=== PATIENT | male | born 1965 | race Caucasian/White ===

== ENCOUNTER 2020-10-11 | Emergency (ER) | payer OTHER, SELFPAY ==
--- NOTE | 2020-10-11 | XR_ITS ---
EXAMINATION: CHEST 2 VIEWS CLINICAL INFORMATION: Pain. COMPARISON: None. TECHNIQUE: PA and lateral views of the chest were obtained. FINDINGS: The cardiac silhouette is not enlarged. A right-sided port is in place. The tip overlies the mid SVC. The mediastinal and hilar contours are unremarkable. There are neither pleural effusions nor pneumothoraces. Throughout both lungs, there is patchy opacification, left greater than right. There is mild superimposed interstitial prominence bilaterally. The osseous structures are unremarkable. XR/XR chest 2V IMPRESSION: Nonspecific patchy opacification, left greater than right, throughout both lungs superimposed upon mild interstitial prominence.
[2020-10-11 00:17] VITALS: BP 140/65; PULSE 78; RESP 16; TEMP 36.4; O2SAT 98; BMI 33.1
--- NOTE | 2020-10-11 02:55 | ED.ABDPAIN ---
HPI - Abdominal Pain General Chief Complaint: Abdominal Pain Stated Complaint: Flank pain Time Seen by Provider: 10/11/20 02:53 Source: patient Mode of arrival: ambulatory Limitations: no limitations History of Present Illness HPI narrative: Patient with history of colon cancer diagnosed 2017 status post partial colectomy and chemotherapy, was doing okay for last 4 days patient noticed pain in the right upper quadrant and radiating to the right flank without any urinary symptoms no nausea no vomiting no diarrhea pain get worse on taking deep breaths since yesterday patient noticed shortness of breath and dry cough occasionally fever no chills Related Data Previous Rx's Medication Instructions Recorded oxycodone 5 mg PO Q6H PRN #20 tab 10/11/20 Allergies Allergy/AdvReac Type Severity Reaction Status Date / Time No Known Allergies Allergy Unverified 07/06/20 19:47 [No Known Allergies*] Review of Systems Review of Systems Constitutional : No Weight loss, No Fever, No Chills ENT/Mouth : No sore throat, No Rhinorrhea Eyes: No Eye Pain, No Swelling Cardiovascular : No Chest Pain, no Dyspnea on Exertion, No Orthopnea, No Edema, No Palpitations, ++SOB Respiratory : Occasion Cough, No Sputum Gastrointestinal : no Nausea, No Vomiting, No Diarrhea, No Hematochezia, No Melena Genitourinary : No Dysuria, No Urinary Frequency Musculoskeletal : No joint pain, No Myalgias, No Joint Swelling Skin : No Skin Lesions, No rash Neuro : No Weakness, No Numbness, No Dizziness, No Headache Psych : No Anxiety/Panic, No Depression Heme/Lymph: No Bruising, No Lymphadenopathy Endocrine : No Polyuria, No Polydipsia All other systems reviewed and are negative Physical Exam Vital Signs: Vital Signs: Last Vital Signs Temp 97.6 F 10/11/20 00:17 Pulse 78 10/11/20 04:47 Resp 18 10/11/20 04:47 BP 120/68 10/11/20 04:47 Pulse Ox 98 10/11/20 04:47 Body Mass Index 33.1 Appearance: Alert. Oriented X3. No acute distress. Eyes: Pupils equal, round and reactive to light. ENT: Pharynx normal. Neck: Normal inspection. Neck supple. CVS: Normal heart rate and rhythm. Pulses normal. Respiratory: No respiratory distress. Breath sounds normal. Abdomen: Soft mild tenderness right upper quadrant and right flank area without rebound tenderness or guarding, Bowel sounds are present, no mass palpable, Huber sign negative Skin: Skin warm and dry. Normal skin color. Normal skin turgor. Extremities: No lower extremity edema. No calf tenderness Neuro: Oriented X 3. No motor deficit. No sensory deficit. Course Course Course Narrative: Patient with history of colon cancer came in with right upper quadrant pain workup showed metastatic disease to liver and the lungs give him some pain medication advised to follow-up with his oncologist MDM - Abdominal Pain MDM Narrative Medical decision making narrative: Patient with right upper quadrant and right back pain etiology is not clear chest x-ray showed atypical infiltrate possible COVID infection went to the CAT scan because of the history of colon cancer to rule out any nephrolithiasis or gallstones versus spread of cancer Medical Records Attestation: I reviewed the patient's medical records. Lab Data Attestation: I reviewed the patient's lab results. Result diagrams: 10/11/20 03:10 10/11/20 03:10 Labs: Lab Results 10/11/20 10/11/20 10/11/20 Range/Units 03:10 03:10 03:10 WBC 10.4 (4.8-10.8) X10*3/uL RBC 4.45 L (4.60-5.80) X10*6/uL Hgb 11.6 L (14.0-18.0) g/dl Hct 37.3 L (42-52) % MCV 83.8 (80-98) fL MCH 26.1 L (27.0-33.0) pg MCHC 31.1 (31.0-36.0) g/dl RDW 15.8 (11.0-16.0) % Plt Count 181 (160-400) X10*3/uL MPV 11.3 (9.4-12.4) fL Immature Gran % (Auto) 0.3 (0.0-0.4) % Neut % (Auto) 69.2 (45-73) % Lymph % (Auto) 17.7 L (20-40) % [place] % (Auto) 6.6 (2-11) % Eos % (Auto) 5.4 H (0-4) % Baso % (Auto) 0.8 (0-2) % Lymph # (Auto) 1.8 (1.2-4.9) X10*3/uL [place] # (Auto) 0.7 (0.1-1.2) X10*3/uL Eos # (Auto) 0.6 H (0.0-0.4) X10*3/uL Baso # (Auto) 0.1 (0.0-0.2) X10*3/uL Abs Immat Gran (auto) 0.03 (0.00-0.03) X10*3/uL Absolute Neuts (auto) 7.2 (2.0-8.3) X10*3/uL Absolute Nucleated RBC 0.000 (0.0-0.012) X10*3/uL Nucleated RBC % (auto) 0.0 (0.0-0.2) /100WBC PT 16.3 H (10.8-13.0) SEC INR 1.4 H (0.9-1.1) D-Dimer 896 NG/ML Sodium 140 (135-145) mmol/L Potassium 4.3 (3.3-5.1) mmol/l Chloride 100 (96-108) mmol/L Carbon Dioxide 31 H (22-29) mmol/L Anion Gap 13 (12-20) BUN 16 (9-16) mg/dL Creatinine 1.03 (0.5-1.4) mg/dL Estim Creat Clear Calc 79.8 Estimated GFR > 60 Random Glucose 96 (60-115) mg/dL Lactic Acid (0.5-2.0) mmol/L Calcium 9.5 (8.4-10.2) mg/dL Total Bilirubin 0.5 (0.0-1.0) mg/dL Direct Bilirubin 0.2 (0.0-0.5) mg/dL AST 40 H (5-37) U/L ALT 19 (0-40) U/L Alkaline Phosphatase 140 H (39-117) U/L Troponin I High Sens (<3.5-35.0) ng/L Total Protein 8.1 H (6.5-8.0) g/dL Albumin 4.5 (3.5-5.0) g/dL Lipase 23 (8-78) U/L Coronavirus (PCR) (Negative) Influenza Type A (PCR) (Negative) Influenza Type B (PCR) (Negative) RSV RNA Qual (PCR) (Negative) 10/11/20 10/11/20 10/11/20 Range/Units 03:10 03:10 03:10 WBC (4.8-10.8) X10*3/uL RBC (4.60-5.80) X10*6/uL Hgb (14.0-18.0) g/dl Hct (42-52) % MCV (80-98) fL MCH (27.0-33.0) pg MCHC (31.0-36.0) g/dl RDW (11.0-16.0) % Plt Count (160-400) X10*3/uL MPV (9.4-12.4) fL Immature Gran % (Auto) (0.0-0.4) % Neut % (Auto) (45-73) % Lymph % (Auto) (20-40) % [place] % (Auto) (2-11) % Eos % (Auto) (0-4) % Baso % (Auto) (0-2) % Lymph # (Auto) (1.2-4.9) X10*3/uL [place] # (Auto) (0.1-1.2) X10*3/uL Eos # (Auto) (0.0-0.4) X10*3/uL Baso # (Auto) (0.0-0.2) X10*3/uL Abs Immat Gran (auto) (0.00-0.03) X10*3/uL Absolute Neuts (auto) (2.0-8.3) X10*3/uL Absolute Nucleated RBC (0.0-0.012) X10*3/uL Nucleated RBC % (auto) (0.0-0.2) /100WBC PT (10.8-13.0) SEC INR (0.9-1.1) D-Dimer NG/ML Sodium (135-145) mmol/L Potassium (3.3-5.1) mmol/l Chloride (96-108) mmol/L Carbon Dioxide (22-29) mmol/L Anion Gap (12-20) BUN (9-16) mg/dL Creatinine (0.5-1.4) mg/dL Estim Creat Clear Calc Estimated GFR Random Glucose (60-115) mg/dL Lactic Acid 1.2 (0.5-2.0) mmol/L Calcium (8.4-10.2) mg/dL Total Bilirubin (0.0-1.0) mg/dL Direct Bilirubin (0.0-0.5) mg/dL AST (5-37) U/L ALT (0-40) U/L Alkaline Phosphatase (39-117) U/L Troponin I High Sens < 3.5 (<3.5-35.0) ng/L Total Protein (6.5-8.0) g/dL Albumin (3.5-5.0) g/dL Lipase (8-78) U/L Coronavirus (PCR) NEGATIVE (Negative) Influenza Type A (PCR) NEGATIVE (Negative) Influenza Type B (PCR) NEGATIVE (Negative) RSV RNA Qual (PCR) NEGATIVE (Negative) Discharge Plan Discharge Clinical Impression: Colon cancer metastasized to liver Patient Disposition: Home, Self-Care Instructions: Colorectal Cancer (DC) Additional Instructions: Follow-up with her oncologist for further workup, pain medicine as advised Your CT scan has shown metastasis to liver and lungs Prescriptions: New oxycodone 5 mg tablet 5 mg PO Q6H PRN (Reason: Abdominal Discomfort) Qty: 20 RF: 0 PMFSH Past Medical History Medical History Colon cancer Diabetes 1.5, managed as type 2 High cholesterol Social History Social History Alcohol intake: unknown Smoking Status: Unknown if ever smoked Use of substances other than those prescribed or required for medical reasons: No Advance Directives: No Advance Directives Information Provided: No
[2020-10-11 03:00] VITALS: RESP 18
--- NOTE | 2020-10-11 03:00 | CT_ITS ---
EXAMINATION: CT ABDOMEN AND PELVIS WITHOUT CONTRAST CLINICAL INFORMATION: Right-sided pain. History of colon cancer. COMPARISON: 09/24/2019. TECHNIQUE: Contiguous axial thin section helical images of the abdomen and pelvis were performed without oral or IV contrast. The data set was reformatted in the coronal and sagittal planes and reviewed on an independent workstation. Please note that evaluation for inflammatory, infectious or metastatic processes is significantly limited due to the lack of IV contrast. DLP: 613 mGy-cm. FINDINGS: There are numerous pulmonary nodules within the visualized lung bases. The largest is within the right lower lobe on image 29/772 measuring approximately 15 mm. There is also atelectasis within the posterior basal segment of the left lower lobe. The visualized nodules are present within the lingula, right middle lobe and both lower lobes. The visualized portions of the heart are unremarkable. Liver is of overall normal size and attenuation. There is no demonstrable intrahepatic biliary ductal dilation, though contrast was not administered. As stated above, evaluation for neoplastic processes is limited due to the lack of IV contrast. However, there is an extensive low-attenuation lesion within the posterior aspect of the right lobe of the liver measuring up to 11 cm in greatest dimension. There are a few punctate central calcifications. There is an adjacent lesion within the dome of the right lobe of the liver on image 60/772 measuring 2.4 cm. There is no cholelithiasis. There is no gallbladder wall thickening or pericholecystic fluid. The spleen, pancreas, adrenal glands are unremarkable. Both kidneys are of normal size and attenuation without hydronephrosis or nephrolithiasis. There is no abdominal free fluid. There is neither mesenteric nor retroperitoneal lymphadenopathy. Surgical chain sutures are noted within the ascending colon. There are no dilated loops of small or large bowel. Otherwise, unremarkable unopacified loops of small and large bowel are identified. There is no pelvic free fluid. The urinary bladder is unremarkable. There is neither pelvic nor inguinal lymphadenopathy. Bone windows: Neither sclerotic nor lytic bone lesions are identified. CT/CT abdomen pelvis wo con IMPRESSION: Interval development of innumerable bilateral pulmonary nodules and 2 low-attenuation lesions within the liver is highly worrisome for metastatic disease. Consider correlation with abdominal MRI for further tissue characterization. Automated exposure control (Care Dose) Adjustment of the mA and/or kv according to patient size (this includes techniques or standardized protocols for targeted exams where dose is matched to indication / reason for exam; i.e. extremities or head).
[2020-10-11 03:16] LABS: Basophils Absolute Auto 0.1 X10*3/uL (0.0-0.2); Basophils Percent Auto 0.8 % (0-2); Eosinophils Absolute Auto 0.6 X10*3/uL (0.0-0.4); Eosinophils Percent Auto 5.4 % (0-4); Hematocrit 37.3 % (42-52); Hemoglobin 11.6 g/dl (14.0-18.0); Imm Gran Abs Auto 0.03 X10*3/uL (0.00-0.03); Imm Gran Pct Auto 0.3 % (0.0-0.4); Lymphocytes Absolute Auto 1.8 X10*3/uL (1.2-4.9); Lymphocytes Percent Auto 17.7 % (20-40); MANUAL DIFF FLAG NO; Mean Corpuscular HGB Conc 31.1 g/dl (31.0-36.0); Mean Corpuscular Hemoglobin 26.1 pg (27.0-33.0); Mean Corpuscular Volume 83.8 fL (80-98); Mean Platelet Volume 11.3 fL (9.4-12.4); Monocytes Absolute Auto 0.7 X10*3/uL (0.1-1.2); Monocytes Percent Auto 6.6 % (2-11); Neutrophils Absolute Auto 7.2 X10*3/uL (2.0-8.3); Neutrophils Percent Auto 69.2 % (45-73); Platelet Count 181 X10*3/uL (160-400); Red Blood Count 4.45 X10*6/uL (4.60-5.80); Red Cell Distribution Width 15.8 % (11.0-16.0); White Blood Count 10.4 X10*3/uL (4.8-10.8)
[2020-10-11 03:25] LABS: INTERNATIONAL NORM RATIO 1.4 (0.9-1.1); Prothrombin Time 16.3 SEC (10.8-13.0)
[2020-10-11 03:27] LABS: D Dimer 896 NG/ML
[2020-10-11 03:41] LABS: Lactic Acid 1.2 mmol/L (0.5-2.0)
[2020-10-11 03:52] LABS: Troponin-I High Sensitivity < 3.5 ng/L (<3.5-35.0)
[2020-10-11 03:56] LABS: Influenza A PCR NEGATIVE (Negative); Influenza B PCR NEGATIVE (Negative); Resp Syncy Virus RNA Qual PCR NEGATIVE (Negative); SARS COV2 PCR INHOUSE NEGATIVE (Negative)
[2020-10-11 04:10] LABS: Anion Gap 13 (12-20); Blood Urea Nitrogen 16 mg/dL (9-16); Calcium 9.5 mg/dL (8.4-10.2); Carbon Dioxide 31 mmol/L (22-29); Chloride 100 mmol/L (96-108); Creatinine Clr Calc Pharmacy 79.8; Estimated Glomerular Filt Rate > 60; Glucose Random 96 mg/dL (60-115); Lipase 23 U/L (8-78); Potassium 4.3 mmol/l (3.3-5.1); Sodium 140 mmol/L (135-145)
[2020-10-11] MEDS: 0.9 % Sodium Chloride 1,000 ML 999 ML IVCONT (04:44)
[2020-10-11] MEDS: ondansetron HCL 4 MG/2 ML VIAL IVPUSH (04:45)
[2020-10-11] MEDS: Morphine Sulfate 4 MG/ML CARTRIDGE IVPUSH (04:46)
[2020-10-11 04:47] VITALS: BP 120/68; PULSE 78; RESP 18; O2SAT 98
[2020-10-11 05:00] LABS: Alanine Aminotransferase 19 U/L (0-40); Albumin Level 4.5 g/dL (3.5-5.0); Alkaline Phosphatase 140 U/L (39-117); Aspartate Amino Transferase 40 U/L (5-37); Bilirubin Direct 0.2 mg/dL (0.0-0.5); Bilirubin Total 0.5 mg/dL (0.0-1.0); Total Protein 8.1 g/dL (6.5-8.0)
== END 2020-10-11 06:37 | disposition home or self-care (01) ==
PROVIDERS: Emergency Provider Internal Medicine; PCP Nurse Practitioner Family
DX: C18.9 Malignant neoplasm of colon, unspecified (principal); C78.7 Secondary malignant neoplasm of liver and intrahepatic bile duct; Z20.828 Contact with and (suspected) exposure to other viral communicable diseases; E13.9 Other specified diabetes mellitus without complications
CPT/HCPCS: 0241U; 36415; 71046; 74176; 80048; 80076; 83605; 83690; 84484; 85025; 85379; 85610; 87040; 96361; 96374; 96375; 99284; J2270; J2405

== ENCOUNTER 2020-11-27 08:49 | Outpatient (REF) | payer OTHER, SELFPAY | END 2020-11-27 08:50 | disposition home or self-care (01) | LOC: HO.LAB 08:49 | PROVIDERS: Visit Provider Internal Medicine | DX: Z20.822 Contact with and (suspected) exposure to COVID-19 (principal) | CPT/HCPCS: 36415; C9803; U0003; U0005 ==

== ENCOUNTER 2020-11-30 16:41 | Outpatient (REF) | payer OTHER, SELFPAY | END 2020-11-30 16:42 | disposition home or self-care (01) | LOC: HO.LAB 16:41 | PROVIDERS: Visit Provider Internal Medicine | DX: Z20.822 Contact with and (suspected) exposure to COVID-19 (principal) | CPT/HCPCS: 36415; C9803; U0003; U0005 ==

== ENCOUNTER 2021-01-27 20:15 | Observation (INO) | payer OTHER, SELFPAY ==
--- NOTE | ~2021-01-27 | CT_ITS ---
EXAMINATION: CT ABDOMEN AND PELVIS WITH CONTRAST CLINICAL INFORMATION: Metastatic colon carcinoma with right upper quadrant and flank pain COMPARISON: CT abdomen pelvis 10/11/2020 TECHNIQUE: Multidetector volumetric images were obtained from the superior aspect of the liver through the pubic symphysis following administration 85 mL of Omnipaque 350 intravenous contrast. Sagittal and coronal reformatted images were obtained on the technologist's workstation. Oral contrast: No This CT examination was performed using dose optimization techniques as appropriate, variously including the following: *Automated exposure control *Adjustment of mA and/or kV according to patient size (this includes techniques or standardized protocols for targeted exams where dose is matched to indication/reason for exam; i.e. extremities or head) *Use of iterative reconstruction technique DLP: 674 mGy-cm FINDINGS: LUNG BASES: There is marked worsening in pulmonary metastatic disease, many more lung nodules present in the nodules that were present previously has significantly increased in size. As an example, a small left lower lobe nodule had measured 0.5 cm and now measures 1.1 cm (3:15). A new right-sided pleural effusion is present LIVER, GALLBLADDER, AND BILIARY TREE: There has been a dramatic increase in size of the large hepatic metastatic lesion currently measuring 18.5 x 12.7 x 18.5 cm (previously 11.5 x 7.3 x 9.5 cm). This is responsible for the new elevation of the hemidiaphragm seen on the chest radiograph. The gallbladder is unremarkable with no evidence of radiopaque gallstones, gallbladder wall thickening, or obvious pericholecystic inflammatory changes. New ascites is present with a small amount around the liver and spleen along with a small amount in the mesentery and pelvis. PANCREAS: Unremarkable. SPLEEN: Unremarkable. ADRENAL GLANDS: Unremarkable. KIDNEYS AND URETERS: The kidneys are normal in size, shape, and attenuation. No hydronephrosis, hydroureter, or calculi seen. No perinephric stranding. BLADDER: Unremarkable. GASTROINTESTINAL TRACT: The stomach is not distended. There is some new narrowing seen in the third portion of the duodenum that has some inflammatory change/desmoplastic reaction around it along with fluid in the anterior pararenal space. A rectosigmoid anastomosis is present with no evidence of recurrent mass in this region. No bowel obstruction is seen. ABDOMINAL WALL: No significant hernia is appreciated. LYMPH NODES: A necrotic appearing lymph node is present in front of the aorta and IVC measuring 1.7 x 1.6 x 3.9 cm (3:55). Previously this measured only 0.4 cm. Other enlarged nodes are seen in the preaortic region in the upper abdomen and in the retrocaval region just below the level of the crura (3:41). The retrocaval node has increased from 1.5 x 0.8 cm to 2.0 x 1.5 cm (3:41). Other smaller lymph nodes are also present. VASCULAR: Unremarkable. PELVIC VISCERA: Prostate and seminal vesicles appear normal. OSSEOUS STRUCTURES: Unremarkable. CT/CT abdomen pelvis w con IMPRESSION: 1. Dramatic worsening in pulmonary metastatic disease with marked increase in size as well as number of pulmonary masses with development of a new right-sided pleural effusion. 2. Marked increase in the volume of the large hepatic metastases which now takes up most of the volume of the liver and is associated with the elevated hemidiaphragm. 3. New ascites and worsening of intra-abdominal lymphadenopathy. This critical result was discussed with Felipa Ji MD@11:17pm immediately after the exam and it was ascertained that the content and urgency of the report was understood at the time of direct communication.
--- NOTE | ~2021-01-27 | XR_ITS ---
EXAMINATION: XR CHEST CLINICAL INFORMATION: Cough COMPARISON: 10/11/2020 TECHNIQUE: 2 views of the chest were obtained. FINDINGS: There has been a significant worsening in the innumerable pulmonary nodules that were seen previously in both lungs. They appear to have increased in size as well as number. In addition, there is new elevation of the right hemidiaphragm that was not present previously. Heart size is normal. No evidence of CHF. No pleural effusions are seen. No bony destructive lesions are present. Again noted is a right chest wall IJ port with its tip in the SVC. XR/XR chest 2V IMPRESSION: Worsening in pulmonary metastases with no right hemidiaphragm elevation
[2021-01-27 20:26] VITALS: BP 157/79; PULSE 105; RESP 24; TEMP 37.7; O2SAT 97; BMI 32.4
[2021-01-27 21:28] VITALS: BP 147/83; PULSE 102; RESP 18; TEMP 37.2; O2SAT 95
[2021-01-27 21:31] LABS: Basophils Percent Auto 0.3 % (0-2); Eosinophils Percent Auto 0.2 % (0-4); Hematocrit 31.2 % (42-52); Hemoglobin 9.4 g/dl (14.0-18.0); Imm Gran Abs Auto 0.05 X10*3/uL (0.00-0.03); Imm Gran Pct Auto 0.4 % (0.0-0.4); Lymphocytes Absolute Auto 0.7 X10*3/uL (1.2-4.9); Lymphocytes Percent Auto 5.7 % (20-40); MANUAL DIFF FLAG SCAN; Mean Corpuscular HGB Conc 30.1 g/dl (31.0-36.0); Mean Corpuscular Hemoglobin 24.1 pg (27.0-33.0); Mean Platelet Volume 10.4 fL (9.4-12.4); Monocytes Absolute Auto 0.9 X10*3/uL (0.1-1.2); Monocytes Percent Auto 7.9 % (2-11); Neutrophils Absolute Auto 9.9 X10*3/uL (2.0-8.3); Neutrophils Percent Auto 85.5 % (45-73); Platelet Count 203 X10*3/uL (160-400); Red Cell Distribution Width 17.8 % (11.0-16.0); SCAN SMEAR FLAG 1; White Blood Count 11.6 X10*3/uL (4.8-10.8)
[2021-01-27 21:47] LABS: SLIDE REVIEW VERIFIED
[2021-01-27 22:00] VITALS: RESP 18
[2021-01-27 22:02] LABS: Alanine Aminotransferase 40 U/L (0-40); Albumin Level 3.3 g/dL (3.5-5.0); Alkaline Phosphatase 313 U/L (39-117); Anion Gap 16 (12-20); Aspartate Amino Transferase 104 U/L (5-37); Bilirubin Total 0.8 mg/dL (0.0-1.0); Blood Urea Nitrogen 10 mg/dL (9-16); Calcium 8.8 mg/dL (8.4-10.2); Carbon Dioxide 26 mmol/L (22-29); Chloride 100 mmol/L (96-108); Creatinine Clr Calc Pharmacy 108.4; Estimated Glomerular Filt Rate > 60; Glucose Random 97 mg/dL (60-115); Lipase 9 U/L (8-78); Potassium 4.3 mmol/L (3.3-5.1); Sodium 138 mmol/L (135-145)
[2021-01-27 22:13] LABS: INTERNATIONAL NORM RATIO 1.3 (0.9-1.1); Prothrombin Time 15.9 SEC (10.8-13.0)
[2021-01-27 22:16] LABS: Partial Thromboplastin Time 28.7 SEC (24.1-38.0)
--- NOTE | 2021-01-27 22:16 | ED_ITS ---
HPI - Abdominal Pain General Chief Complaint: Abdominal Pain Stated Complaint: Abdominal pain Time Seen by Provider: 01/27/21 20:59 Source: patient Mode of arrival: ambulatory History of Present Illness HPI narrative: 55-year-old male with history of colon CA with metastatic lesions in the liver and lungs and currently under the care of [facility] presents with over a month of right-sided mid back pain as well as right upper quadrant pain, cough and the cough causes worsening pain in the abdomen. Otherwise, patient denies any fevers, chills, diarrhea but has had a decrease in appetite and denies any urinary pain/burning/frequency. Patient has also had bilateral lower extremity increased swelling for the past week. Related Data Home Medications Medication Instructions Recorded Confirmed amlodipine 1 tab PO DAILY 01/27/21 01/27/21 apixaban [Eliquis] 1 tab PO BID 01/27/21 01/27/21 atorvastatin 1 tab PO DAILY 01/27/21 01/27/21 metformin 1 tab PO BID 01/27/21 01/27/21 oxycodone 1 tab PO Q4H PRN 01/27/21 01/27/21 Allergies Allergy/AdvReac Type Severity Reaction Status Date / Time No Known Allergies Allergy Verified 01/27/21 20:26 [No Known Allergies*] Review of Systems Review of Systems Pertinent positives and negatives as stated in HPI and 10 point review of systems is otherwise negative. Physical Exam Vital Signs: Vital Signs: Last Vital Signs Temp 98.8 F 01/28/21 03:03 Pulse 85 01/28/21 03:03 Resp 18 01/28/21 03:03 BP 118/63 01/28/21 03:03 Pulse Ox 100 01/28/21 03:03 Body Mass Index 32.4 VITAL SIGNS: Reviewed. GENERAL: Well developed, well nourished, in no acute distress. HEAD: Normocephalic/atraumatic EYES: PERRLA, EOMI NOSE: Nares patent bilateral OROPHARYNX: no oral lesions noted, posterior pharynx clear NECK: Supple, no adenopathy LUNGS: Normal breath sounds. No adventitious sounds or accessory muscle use. SpO2<97> CARDIOVASCULAR: Regular rate and rhythm without noted murmurs, no JVD but bilateral lower extremity pitting edema. ABDOMEN: Soft, tenderness at right upper quadrant/flank pain without rebound, non-distended with bowel sounds. HERIBERTO: Noninflamed hemorrhoids, minimal amount of brown stool in rectal vault without gross blood noted, good rectal tone. EXTREMITIES: Bilateral pitting edema. SKIN: Inspection of the skin reveals no rashes NEUROLOGIC: Alert and oriented x 4. Course Course Course Narrative: This is a 55-year-old male with history and clinical presentation of metastatic colon CA presenting with increasing right-sided abdominal/flank pain and cough for a month. Patient will be evaluated for progression of underlying cancer or infectious etiology such as gallbladder or kidney infection, COVID-19, or pneumonia. On review investigations there is a noted leukocytosis and given patient's current chemotherapy patient will be provided with 2 g of cefepime, lactic acid and blood cultures have been drawn and there is no indication for sepsis fluids at this time due to stable blood pressure and lactic acid-2. 2223: CT abdomen and pelvis is pending. 2317: CT abd/pelvis IMPRESSION: 1. Dramatic worsening in pulmonary metastatic disease with marked increase in size as well as number of pulmonary masses with development of a new right-sided pleural effusion. 2. Marked increase in the volume of the large hepatic metastases which now takes up most of the volume of the liver and is associated with the elevated hemidiaphragm. 3. New ascites and worsening of intra-abdominal lymphadenopath Case discussed with inpatient hospitalist team who is agreeable for admission. Reevaluation(s) Reevaluation #1: CT IMPRESSION: 1. Dramatic worsening in pulmonary metastatic disease with marked increase in size as well as number of pulmonary masses with development of a new right-sided pleural effusion. 2. Marked increase in the volume of the large hepatic metastases which now takes up most of the volume of the liver and is associated with the elevated hemidiaphragm. 3. New ascites and worsening of intra-abdominal lymphadenopathy. Time: 23:18 Reevaluation #2: Placed a call to [facility] to gather collateral information and spoke with Dr. Hawley @ [phone]. They have no specific recommendations other than to informed that there last virtual visit was with the patient on 12/29 and there were no acute findings or complaints at that time. In addition, the office will reach out to the patient on Friday morning to set up a follow-up appointment. Time: 23:46 MDM - Abdominal Pain Lab Data Result diagrams: 01/27/21 21:24 01/27/21 21:24 Labs: Lab Results 01/27/21 01/27/21 01/27/21 Range/Units 21:24 21:24 21:24 WBC 11.6 H (4.8-10.8) X10*3/uL RBC 3.90 L (4.60-5.80) X10*6/uL Hgb 9.4 L (14.0-18.0) g/dl Hct 31.2 L (42-52) % MCV 80.0 (80-98) fL MCH 24.1 L (27.0-33.0) pg MCHC 30.1 L (31.0-36.0) g/dl RDW 17.8 H (11.0-16.0) % Plt Count 203 (160-400) X10*3/uL MPV 10.4 (9.4-12.4) fL Immature Gran % (Auto) 0.4 (0.0-0.4) % Neut % (Auto) 85.5 H (45-73) % Lymph % (Auto) 5.7 L (20-40) % [place] % (Auto) 7.9 (2-11) % Eos % (Auto) 0.2 (0-4) % Baso % (Auto) 0.3 (0-2) % Lymph # (Auto) 0.7 L (1.2-4.9) X10*3/uL [place] # (Auto) 0.9 (0.1-1.2) X10*3/uL Eos # (Auto) 0.0 (0.0-0.4) X10*3/uL Baso # (Auto) 0.0 (0.0-0.2) X10*3/uL Abs Immat Gran (auto) 0.05 H (0.00-0.03) X10*3/uL Absolute Neuts (auto) 9.9 H (2.0-8.3) X10*3/uL Absolute Nucleated RBC 0.000 (0.0-0.012) X10*3/uL Nucleated RBC % (auto) 0.0 (0.0-0.2) /100WBC Smear Tech's Comments VERIFIED PT (10.8-13.0) SEC INR (0.9-1.1) APTT (24.1-38.0) SEC Sodium 138 (135-145) mmol/L Potassium 4.3 (3.3-5.1) mmol/L Chloride 100 (96-108) mmol/L Carbon Dioxide 26 (22-29) mmol/L Anion Gap 16 (12-20) BUN 10 (9-16) mg/dL Creatinine 0.75 (0.5-1.4) mg/dL Estim Creat Clear Calc 108.4 Estimated GFR > 60 Random Glucose 97 (60-115) mg/dL Lactic Acid (0.5-2.0) mmol/L Calcium 8.8 D (8.4-10.2) mg/dL Total Bilirubin 0.8 (0.0-1.0) mg/dL AST 104 H (5-37) U/L ALT 40 (0-40) U/L Alkaline Phosphatase 313 H D (39-117) U/L Total Protein 7.0 (6.5-8.0) g/dL Albumin 3.3 L D (3.5-5.0) g/dL Lipase 9 (8-78) U/L Urine Color Urine Appearance Urine pH (5.0-8.0) Ur Specific [place] (1.005-1.025) Urine Protein (NEG-TRACE) MG/DL Urine Glucose (UA) (NEG) MG/DL Urine Ketones (NEG) MG/DL Urine Blood (NEG) Urine Nitrite (NEG) Ur Leukocyte Esterase (NEG) Coronavirus (PCR) (Negative) Influenza Type A (PCR) (Negative) Influenza Type B (PCR) (Negative) RSV RNA Qual (PCR) (Negative) 01/27/21 01/27/21 01/28/21 Range/Units 21:54 21:54 01:58 WBC (4.8-10.8) X10*3/uL RBC (4.60-5.80) X10*6/uL Hgb (14.0-18.0) g/dl Hct (42-52) % MCV (80-98) fL MCH (27.0-33.0) pg MCHC (31.0-36.0) g/dl RDW (11.0-16.0) % Plt Count (160-400) X10*3/uL MPV (9.4-12.4) fL Immature Gran % (Auto) (0.0-0.4) % Neut % (Auto) (45-73) % Lymph % (Auto) (20-40) % [place] % (Auto) (2-11) % Eos % (Auto) (0-4) % Baso % (Auto) (0-2) % Lymph # (Auto) (1.2-4.9) X10*3/uL [place] # (Auto) (0.1-1.2) X10*3/uL Eos # (Auto) (0.0-0.4) X10*3/uL Baso # (Auto) (0.0-0.2) X10*3/uL Abs Immat Gran (auto) (0.00-0.03) X10*3/uL Absolute Neuts (auto) (2.0-8.3) X10*3/uL Absolute Nucleated RBC (0.0-0.012) X10*3/uL Nucleated RBC % (auto) (0.0-0.2) /100WBC Smear Tech's Comments PT 15.9 H (10.8-13.0) SEC INR 1.3 H (0.9-1.1) APTT 28.7 (24.1-38.0) SEC Sodium (135-145) mmol/L Potassium (3.3-5.1) mmol/L Chloride (96-108) mmol/L Carbon Dioxide (22-29) mmol/L Anion Gap (12-20) BUN (9-16) mg/dL Creatinine (0.5-1.4) mg/dL Estim Creat Clear Calc Estimated GFR Random Glucose (60-115) mg/dL Lactic Acid 2.0 (0.5-2.0) mmol/L Calcium (8.4-10.2) mg/dL Total Bilirubin (0.0-1.0) mg/dL AST (5-37) U/L ALT (0-40) U/L Alkaline Phosphatase (39-117) U/L Total Protein (6.5-8.0) g/dL Albumin (3.5-5.0) g/dL Lipase (8-78) U/L Urine Color Urine Appearance Urine pH (5.0-8.0) Ur Specific [place] (1.005-1.025) Urine Protein (NEG-TRACE) MG/DL Urine Glucose (UA) (NEG) MG/DL Urine Ketones (NEG) MG/DL Urine Blood (NEG) Urine Nitrite (NEG) Ur Leukocyte Esterase (NEG) Coronavirus (PCR) NEGATIVE (Negative) Influenza Type A (PCR) NEGATIVE (Negative) Influenza Type B (PCR) NEGATIVE (Negative) RSV RNA Qual (PCR) NEGATIVE (Negative) 01/28/21 Range/Units 01:58 WBC (4.8-10.8) X10*3/uL RBC (4.60-5.80) X10*6/uL Hgb (14.0-18.0) g/dl Hct (42-52) % MCV (80-98) fL MCH (27.0-33.0) pg MCHC (31.0-36.0) g/dl RDW (11.0-16.0) % Plt Count (160-400) X10*3/uL MPV (9.4-12.4) fL Immature Gran % (Auto) (0.0-0.4) % Neut % (Auto) (45-73) % Lymph % (Auto) (20-40) % [place] % (Auto) (2-11) % Eos % (Auto) (0-4) % Baso % (Auto) (0-2) % Lymph # (Auto) (1.2-4.9) X10*3/uL [place] # (Auto) (0.1-1.2) X10*3/uL Eos # (Auto) (0.0-0.4) X10*3/uL Baso # (Auto) (0.0-0.2) X10*3/uL Abs Immat Gran (auto) (0.00-0.03) X10*3/uL Absolute Neuts (auto) (2.0-8.3) X10*3/uL Absolute Nucleated RBC (0.0-0.012) X10*3/uL Nucleated RBC % (auto) (0.0-0.2) /100WBC Smear Tech's Comments PT (10.8-13.0) SEC INR (0.9-1.1) APTT (24.1-38.0) SEC Sodium (135-145) mmol/L Potassium (3.3-5.1) mmol/L Chloride (96-108) mmol/L Carbon Dioxide (22-29) mmol/L Anion Gap (12-20) BUN (9-16) mg/dL Creatinine (0.5-1.4) mg/dL Estim Creat Clear Calc Estimated GFR Random Glucose (60-115) mg/dL Lactic Acid (0.5-2.0) mmol/L Calcium (8.4-10.2) mg/dL Total Bilirubin (0.0-1.0) mg/dL AST (5-37) U/L ALT (0-40) U/L Alkaline Phosphatase (39-117) U/L Total Protein (6.5-8.0) g/dL Albumin (3.5-5.0) g/dL Lipase (8-78) U/L Urine Color YELLOW Urine Appearance CLEAR Urine pH 7.5 (5.0-8.0) Ur Specific [place] <= 1.005 (1.005-1.025) Urine Protein NEG (NEG-TRACE) MG/DL Urine Glucose (UA) NEG (NEG) MG/DL Urine Ketones 15 (NEG) MG/DL Urine Blood NEG (NEG) Urine Nitrite NEG (NEG) Ur Leukocyte Esterase NEG (NEG) Coronavirus (PCR) (Negative) Influenza Type A (PCR) (Negative) Influenza Type B (PCR) (Negative) RSV RNA Qual (PCR) (Negative) Discharge Plan Discharge Clinical Impression: Intractable abdominal pain, Intractable back pain, Anemia, Ascites Patient Disposition: Admitted As Inpatient [facility] Past Medical History Source: nursing notes reviewed Medical History Colon 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
[2021-01-27] MEDS: iohexoL 350 MG/ML 100 ML INFUS..BTL IV (22:27)
[2021-01-27] MEDS: cefEPime HCl 2 GM in 0.9 % Sodium Chloride 50 ML IV (22:46)
--- NOTE | 2021-01-27 22:49 | PC.NURSE ---
Addendum entered by Teena Romano 01/27/21 22:49: 2-4 pills of oxycodone 3-4times a day. Original Note: per patient he takes 2-4 pills at one time 3-4 times a day.
--- NOTE | 2021-01-27 22:56 | PC.NURSE ---
patient requesting supply chain generalist for herself rather than for the patient.
--- NOTE | 2021-01-27 22:57 | PC.NURSE ---
reporting pain is getting worse, md aware. monitoring at this time.
[2021-01-27] MEDS: oxyCODONE HCl Immed Release 5 MG TABLET PO (23:10)
--- NOTE | 2021-01-27 23:48 | PC.NURSE ---
plan at this time is for md to contact [facility] oncall provider to call back.
[2021-01-28] VITALS (9 sets, daily range): BP systolic 117–145; BP diastolic 63–81; PULSE 79–92; RESP 14–24; TEMP 36.3–37.1; O2SAT 96–100
--- NOTE | 2021-01-28 00:18 | PC.NURSE ---
PT'S AT BEDSIDE CONTINUES TO REQUEST PAIN AND ANXIETY MANAGEMENT. PROVIDER AWARE. PATIENT AND REEDUCATED ON COURSE OF CARE AND PLAN FOR DAVONTE ANGELES TO CONTACT [facility] [place] REGARDING ONCOLOGY CARE.
[2021-01-28] MEDS: oxyCODONE HCl Immed Release 5 MG TABLET PO ×2 (00:37→12:01)
[2021-01-28 02:36] LABS: Glucose Urine UA NEG (NEG); Leukocyte Esterase Urine NEG (NEG); Nitrite Urine NEG (NEG); PH 7.5 (5.0-8.0); Specific Gravity - Urine <= 1.005 (1.005-1.025); Urine Blood NEG (NEG); Urine Ketones 15 MG/DL (NEG); Urine Protein NEG (NEG-TRACE)
[2021-01-28 02:43] LABS: Appearance Urine CLEAR; Color Urine YELLOW
[2021-01-28] MEDS: 0.9 % Sodium Chloride 1,000 ML 999 ML IV (03:03)
[2021-01-28 03:18] LABS: Influenza A PCR NEGATIVE (Negative); Influenza B PCR NEGATIVE (Negative); Resp Syncy Virus RNA Qual PCR NEGATIVE (Negative); SARS COV2 PCR INHOUSE NEGATIVE (Negative)
[2021-01-28 03:33] LABS: OBS Int Ctl Valid YES; OBS1 NEGATIVE (NEGATIVE)
--- NOTE | 2021-01-28 05:10 | PM.IMHP ---
History of Present Illness Date of Service: 01/28/21 Chief Complaint: Abdominal pain This is a 55-year-old male with past medical history of colon cancer currently undergoing chemotherapy at an outside hospital, diabetes, hyperlipidemia who presents to the hospital complaining of abdominal pain. Abdominal pain is localized to the right upper quadrant, he feels the pain is in his liver, 10/10, nonradiating, also feeling pain with coughing in his chest and abdomen, pain is associated with nausea with no vomiting, no fever or chills, he denies any diarrhea constipation, reports taking oxycodone at home with no relief of his pain, he also has back pain, denies any diarrhea constipation, no urinary symptoms. He reports lower extremity edema for few weeks. He has chronic cough that is nonproductive. All other review of system negative. Vitals on arrival within normal range, Labs significant for WBC count of 11.6, hemoglobin of 9.4, CMP almost unremarkable except for an AST of 104, alk-phos of 313, albumin of 3.3, UA negative, COVID-19 negative Chest x-ray as well as abdominal CT demonstrate dramatic worsening in pulmonary metastatic disease with marked increase in size as well as number of pulmonary masses with development of new right-sided pleural effusion. Marked increase in the volume of the large hepatic metastasis which now takes of most of the volume of the liver and is associated with elevated hemidiaphragm. New ascites and worsening of intra-abdominal lymphadenopathy. Past medical history as below and confirmed with patient Review of Systems Review of Systems: Yes all other systems are reviewed and are negative [facility] Medical History Colon cancer Diabetes 1.5, managed as type 2 High cholesterol Functional capacity: independent ambulation Social History Alcohol intake: unknown Smoking Status: Never smoker Smoked in Last 30 Days: No Use of substances other than those prescribed or required for medical reasons: No Advance Directives: No Advance Directives Information Provided: Yes Meds Allergies Allergy/AdvReac Type Severity Reaction Status Date / Time No Known Allergies Allergy Verified 01/27/21 20:26 [No Known Allergies*] Home Medications Medication Instructions Recorded Confirmed Last Taken Type amlodipine 1 tab PO DAILY 01/27/21 01/27/21 Unknown History apixaban [Eliquis] 1 tab PO BID 01/27/21 01/27/21 Unknown History atorvastatin 1 tab PO DAILY 01/27/21 01/27/21 Unknown History metformin 1 tab PO BID 01/27/21 01/27/21 Unknown History oxycodone 1 tab PO Q4H PRN 01/27/21 01/27/21 Unknown History Physical Exam Vital Signs and Narrative: Vital Signs: Last Vital Signs Temp 98.8 F 01/28/21 03:03 Pulse 85 01/28/21 03:03 Resp 18 01/28/21 03:03 BP 118/63 01/28/21 03:03 Pulse Ox 100 01/28/21 03:03 Body Mass Index 32.4 Const: General: cooperative and no acute distress Orientation/consciousness: patient oriented x3 Eyes: General: appearance normal, both eyes and all related structures Pupils: Equal, round and reactive pupils present Resp: Effort & Inspection: normal respiratory effort, able to speak in complete sentences and abnormal respiratory pattern Auscultation: clear to auscultation bilaterally Cardio: Rate: regular rate Rhythm: regular rhythm GI: Other: Diffuse tenderness worse on right upper quadrant Auscultation: normal bowel sounds Skin: General skin exam: no rashes or lesions noted Neuro: General: patient oriented x3 Cranial nerves: Yes Equal, round and reactive pupils present Cognition (Neuro): normal cognition Extrem: General: Yes normal to inspection and Yes no pedal edema Results Labs CBC and Chem 7: 01/27/21 21:24 01/27/21 21:24 Labs: Laboratory Results - last 24 hr 01/27/21 01/27/21 01/27/21 21:24 21:24 21:24 MCV 80.0 MCH 24.1 L MCHC 30.1 L RDW 17.8 H Plt Count 203 MPV 10.4 Immature Gran % (Auto) 0.4 Neut % (Auto) 85.5 H Lymph % (Auto) 5.7 L [place] % (Auto) 7.9 Eos % (Auto) 0.2 Baso % (Auto) 0.3 Lymph # (Auto) 0.7 L [place] # (Auto) 0.9 Eos # (Auto) 0.0 Baso # (Auto) 0.0 Abs Immat Gran (auto) 0.05 H Absolute Neuts (auto) 9.9 H Absolute Nucleated RBC 0.000 Nucleated RBC % (auto) 0.0 Smear Tech's Comments VERIFIED PT INR APTT Anion Gap 16 Estim Creat Clear Calc 108.4 Estimated GFR > 60 Random Glucose 97 Lactic Acid Calcium 8.8 D Total Bilirubin 0.8 AST 104 H ALT 40 Alkaline Phosphatase 313 H D Total Protein 7.0 Albumin 3.3 L D Lipase 9 Urine Color Urine Appearance Urine pH Ur Specific [place] Urine Protein Urine Glucose (UA) Urine Ketones Urine Blood Urine Nitrite Ur Leukocyte Esterase Stool Occult Blood Coronavirus (PCR) Influenza Type A (PCR) Influenza Type B (PCR) RSV RNA Qual (PCR) 01/27/21 01/27/21 01/28/21 21:54 21:54 01:58 MCV MCH MCHC RDW Plt Count MPV Immature Gran % (Auto) Neut % (Auto) Lymph % (Auto) [place] % (Auto) Eos % (Auto) Baso % (Auto) Lymph # (Auto) [place] # (Auto) Eos # (Auto) Baso # (Auto) Abs Immat Gran (auto) Absolute Neuts (auto) Absolute Nucleated RBC Nucleated RBC % (auto) Smear Tech's Comments PT 15.9 H INR 1.3 H APTT 28.7 Anion Gap Estim Creat Clear Calc Estimated GFR Random Glucose Lactic Acid 2.0 Calcium Total Bilirubin AST ALT Alkaline Phosphatase Total Protein Albumin Lipase Urine Color Urine Appearance Urine pH Ur Specific [place] Urine Protein Urine Glucose (UA) Urine Ketones Urine Blood Urine Nitrite Ur Leukocyte Esterase Stool Occult Blood Coronavirus (PCR) NEGATIVE Influenza Type A (PCR) NEGATIVE Influenza Type B (PCR) NEGATIVE RSV RNA Qual (PCR) NEGATIVE 01/28/21 01/28/21 01:58 03:26 MCV MCH MCHC RDW Plt Count MPV Immature Gran % (Auto) Neut % (Auto) Lymph % (Auto) [place] % (Auto) Eos % (Auto) Baso % (Auto) Lymph # (Auto) [place] # (Auto) Eos # (Auto) Baso # (Auto) Abs Immat Gran (auto) Absolute Neuts (auto) Absolute Nucleated RBC Nucleated RBC % (auto) Smear Tech's Comments PT INR APTT Anion Gap Estim Creat Clear Calc Estimated GFR Random Glucose Lactic Acid Calcium Total Bilirubin AST ALT Alkaline Phosphatase Total Protein Albumin Lipase Urine Color YELLOW Urine Appearance CLEAR Urine pH 7.5 Ur Specific [place] <= 1.005 Urine Protein NEG Urine Glucose (UA) NEG Urine Ketones 15 Urine Blood NEG Urine Nitrite NEG Ur Leukocyte Esterase NEG Stool Occult Blood NEGATIVE Coronavirus (PCR) Influenza Type A (PCR) Influenza Type B (PCR) RSV RNA Qual (PCR) Imaging Radiologist's Impressions: Impressions Abdomen/Pelvis CT 01/27/21 21:49 IMPRESSION: 1. Dramatic worsening in pulmonary metastatic disease with marked increase in size as well as number of pulmonary masses with development of a new right-sided pleural effusion. 2. Marked increase in the volume of the large hepatic metastases which now takes up most of the volume of the liver and is associated with the elevated hemidiaphragm. 3. New ascites and worsening of intra-abdominal lymphadenopathy. This critical result was discussed with Felipa Ji MD@11:17pm immediately after the exam and it was ascertained that the content and urgency of the report was understood at the time of direct communication. Chest X-Ray 01/27/21 21:49 IMPRESSION: Worsening in pulmonary metastases with no right hemidiaphragm elevation Assessment and Plan (1) Intractable abdominal pain: Status: Acute (2) Anemia: Status: Acute (3) Ascites: Status: Acute (4) Colon cancer metastasized to liver: Status: Acute (5) Colon cancer metastasized to lung: Status: Acute This is a 55-year-old male with past medical history of colon cancer with metastasis who presents to the hospital with complaints of intractable abdominal pain. # intractable abdominal pain - most likely secondary to extensive metastasis to the liver - currently on oxycodone at home with no relief - will admit for observation and start him on IV pain medication - his oncologist is from a different hospital, will need follow-up for further management of patient # anemia - patient had a drop of hemoglobin from 11-9 since October - denies any melena, no hematochezia, no hematemesis or hemoptysis - most likely related to his colon cancer - will send out ferritin - follow-up outpatient # metastatic colon cancer - follow-up outpatient with oncologist # diabetes - continue metformin - diabetic diet # hypertension - stable - continue amlodipine # hyperlipidemia - continue statin DVT prophylaxis: Early ambulation
[2021-01-28] MEDS: 0.9 % Sodium Chloride Flush 3 ML SYRINGE IVFLUSH ×3 (08:55→22:05)
[2021-01-28] MEDS: Apixaban 5 MG TABLET PO ×2 (08:55→22:05)
[2021-01-28] MEDS: amLODIPine Besylate 10 MG TABLET PO (08:55)
[2021-01-28] MEDS: Atorvastatin Calcium 20 MG TABLET PO (08:55)
[2021-01-28] MEDS: Morphine Sulfate 4 MG/ML CARTRIDGE IVPUSH ×3 (09:01→22:57)
[2021-01-28] MEDS: metFORMIN HCl 1,000 MG TABLET 1000 MG PO ×2 (09:13→22:05)
[2021-01-28 10:02] LABS: Ferritin 928 ng/mL (20-250)
--- NOTE | 2021-01-28 10:11 | MHC.CM.PN ---
PATIENT LIVES WITH HIS . HE IS INDEPENDENT WITH HIS ADLS. NO DME OR VNA SERVICES. HIS PCP IS AT [facility] IN [facility]. HE REPORTS THAT HE TYPICALLY WILL SEE WHICH EVER PROVIDER IS AVAILABLE. CASE MANAGEMENT EXPLAINED IMPORTANCE OF HCP DOCUMENTATION. PATIENT WILL CONSIDER ASSIGNING AN AGENT HE IS AWARE THAT CASE MANAGEMENT CAN ASSIST IF HE CHOOSES TO DO SO. YARIEL 01/27 IN CHART.
[2021-01-28] MEDS: Furosemide 20 MG/2 ML VIAL IVPUSH (12:28)
[2021-01-28] MEDS: oxyCODONE HCl ER 10 MG TAB.ER.12H PO ×2 (16:51→22:05)
[2021-01-29 03:18] VITALS: BP 123/68; PULSE 88; RESP 20; TEMP 36.4; O2SAT 95
[2021-01-29 04:36] LABS: MANUAL DIFF FLAG NO
[2021-01-29 04:38] LABS: Basophils Percent Auto 0.4 % (0-2); Eosinophils Absolute Auto 0.1 X10*3/uL (0.0-0.4); Eosinophils Percent Auto 1.2 % (0-4); Hematocrit 29.2 % (42-52); Hemoglobin 8.8 g/dl (14.0-18.0); Imm Gran Abs Auto 0.05 X10*3/uL (0.00-0.03); Imm Gran Pct Auto 0.5 % (0.0-0.4); Lymphocytes Percent Auto 10.4 % (20-40); Mean Corpuscular HGB Conc 30.1 g/dl (31.0-36.0); Mean Corpuscular Hemoglobin 24.4 pg (27.0-33.0); Mean Corpuscular Volume 80.9 fL (80-98); Mean Platelet Volume 11.7 fL (9.4-12.4); Monocytes Absolute Auto 0.9 X10*3/uL (0.1-1.2); Monocytes Percent Auto 9.4 % (2-11); Neutrophils Absolute Auto 7.2 X10*3/uL (2.0-8.3); Neutrophils Percent Auto 78.1 % (45-73); Platelet Count 190 X10*3/uL (160-400); Red Blood Count 3.61 X10*6/uL (4.60-5.80); Red Cell Distribution Width 17.6 % (11.0-16.0); White Blood Count 9.2 X10*3/uL (4.8-10.8)
[2021-01-29 05:04] LABS: Anion Gap 14 (12-20); Blood Urea Nitrogen 13 mg/dL (9-16); Calcium 8.6 mg/dL (8.4-10.2); Carbon Dioxide 28 mmol/L (22-29); Chloride 98 mmol/L (96-108); Creatinine Clr Calc Pharmacy 111.4; Estimated Glomerular Filt Rate > 60; Glucose Random 99 mg/dL (60-115); Potassium 3.9 mmol/L (3.3-5.1); Sodium 136 mmol/L (135-145)
[2021-01-29 07:45] VITALS: BP 124/75; PULSE 91; RESP 18; TEMP 36.9; O2SAT 97
[2021-01-29] MEDS: Apixaban 5 MG TABLET PO (08:12)
[2021-01-29] MEDS: Furosemide 20 MG TABLET PO (08:13)
[2021-01-29 08:14] VITALS: BP 124/75; PULSE 91
[2021-01-29] MEDS: amLODIPine Besylate 10 MG TABLET PO (08:14)
[2021-01-29] MEDS: oxyCODONE HCl ER 10 MG TAB.ER.12H PO (08:14)
[2021-01-29] MEDS: 0.9 % Sodium Chloride Flush 3 ML SYRINGE IVFLUSH (08:14)
[2021-01-29] MEDS: metFORMIN HCl 1,000 MG TABLET 1000 MG PO (08:14)
[2021-01-29] MEDS: Atorvastatin Calcium 20 MG TABLET PO (08:14)
[2021-01-29] MEDS: oxyCODONE HCl Immed Release 5 MG TABLET PO (08:30)
[2021-01-29 11:21] VITALS: BP 120/79; PULSE 92; RESP 18; TEMP 36.9; O2SAT 96
--- NOTE | 2021-01-29 11:34 | P.DS_ITS ---
DS: Providers Provider Date of Service: 01/29/21 Date of admission: 01/28/21 04:58 Primary care physician: Unknown Physician DS: Diagnosis Discharge Diagnosis (1) Intractable abdominal pain: Status: Acute (2) Anemia: Status: Acute (3) Ascites: Status: Acute (4) Colon cancer metastasized to liver: Status: Acute (5) Colon cancer metastasized to lung: Status: Acute (6) Pleural effusion: Status: Acute (7) Intractable back pain: Status: Acute (8) Edema, lower extremity: Status: Acute DS: Medications Discharge Medications Home Medications: Home Medications Medication Instructions Recorded Confirmed Eliquis 1 tab PO BID 01/27/21 01/27/21 amlodipine 1 tab PO DAILY 01/27/21 01/27/21 atorvastatin 1 tab PO DAILY 01/27/21 01/27/21 metformin 1 tab PO BID 01/27/21 01/27/21 Previous Rx's Medication Instructions Recorded furosemide 20 mg PO DAILY #30 tab 01/29/21 oxycodone 1 tab PO Q4H PRN #20 tab 01/29/21 oxycodone 5 mg PO Q4H PRN #20 tab 01/29/21 oxycodone [OxyContin] 10 mg PO BID #60 tab 01/29/21 DS: Summary Hospital Course Hospital Course: Admission note HPI This is a 55-year-old male with past medical history of colon cancer currently undergoing chemotherapy at an outside hospital, diabetes, hyperlipidemia who presents to the hospital complaining of abdominal pain. Abdominal pain is localized to the right upper quadrant, he feels the pain is in his liver, 10/10, nonradiating, also feeling pain with coughing in his chest and abdomen, pain is associated with nausea with no vomiting, no fever or chills, he denies any diarrhea constipation, reports taking oxycodone at home with no relief of his pain, he also has back pain, denies any diarrhea constipation, no urinary symptoms. He reports lower extremity edema for few weeks. He has chronic cough that is nonproductive. All other review of system negative. Vitals on arrival within normal range, Labs significant for WBC count of 11.6, hemoglobin of 9.4, CMP almost unremarkable except for an AST of 104, alk-phos of 313, albumin of 3.3, UA negative, COVID-19 negative Chest x-ray as well as abdominal CT demonstrate dramatic worsening in pulmonary metastatic disease with marked increase in size as well as number of pulmonary m asses with development of new right-sided pleural effusion. Marked increase in the volume of the large hepatic metastasis which now takes of most of the volume of the liver and is associated with elevated hemidiaphragm. New ascites and worsening of intra-abdominal lymphadenopathy. Hospital course Patient was admitted to the hospital for evaluation of intractable abdominal and back pain as a result of progression of his cancer as proven by CT scan of abdomen and pelvis with newly recognized right-sided pleural effusion which seems asymptomatic as the patient is complaining mainly of pain but no shortness of breath. Pain was fairly controlled with usage of IV morphine, oral oxycodone. After calculated is approximate need long-acting OxyContin of 10 mg was started twice daily along with p.r.n. oxycodone with fair response. CT scan also reported ascites. Patient reported having increased bilateral lower extremity edema. He was started on IV Lasix with good response over the hospital stay changed to p.o. at time of discharge. CT scan findings were discussed with patient who reports he has a follow-up visit with his oncologist on Friday to discuss his treatment options. To be discharged home OxyContin 10 mg b.i.d., oxycodone 5 mg p.r.n. Start using Lasix 20 mg daily he might need a higher dose. To be reviewed by PCP To repeat BMP next week Time Spent with Patient Time attestation: Total time spent providing and/or coordinating discharge services: Discharge coordination time: Greater than 30 minutes Physical Exam Vital Signs: Vital Signs: Last Vital Signs Temp 98.5 F 01/29/21 11:21 Pulse 92 01/29/21 11:21 Resp 18 01/29/21 11:21 BP 120/79 01/29/21 11:21 Pulse Ox 96 01/29/21 11:21 Body Mass Index 32.4 Const: Other: Constitutional : Alert, oriented, not in distress Neck : Normal inspection, Supple Cardiovascular : RRR, S1 S2, +1 bilateral lower extremity edema Respiratory : Decreased air entry over the mid to lower part at the right lung, no crackles, wheezes or rhonchi Gastrointestinal: soft, lax, Normal bowel sounds, mildly distended with mild amount of ascites, no tenderness Skin : Warm/Dry, No rash Neurological : Alert & oriented x3, No focal deficit DS: Data Data Completed and Pending Labs on day of discharge: Laboratory Results - last 24 hr 01/29/21 01/29/21 04:27 04:27 WBC 9.2 RBC 3.61 L Hgb 8.8 L Hct 29.2 L MCV 80.9 MCH 24.4 L MCHC 30.1 L RDW 17.6 H Plt Count 190 MPV 11.7 Immature Gran % (Auto) 0.5 H Neut % (Auto) 78.1 H Lymph % (Auto) 10.4 L [place] % (Auto) 9.4 Eos % (Auto) 1.2 Baso % (Auto) 0.4 Lymph # (Auto) 1.0 L [place] # (Auto) 0.9 Eos # (Auto) 0.1 Baso # (Auto) 0.0 Abs Immat Gran (auto) 0.05 H Absolute Neuts (auto) 7.2 Absolute Nucleated RBC 0.000 Nucleated RBC % (auto) 0.0 Sodium 136 Potassium 3.9 Chloride 98 Carbon Dioxide 28 Anion Gap 14 BUN 13 Creatinine 0.73 Estim Creat Clear Calc 111.4 Estimated GFR > 60 Random Glucose 99 Calcium 8.6 Preliminary micro results at discharge 01/27/21 21:54 Blood Culture - Preliminary Blood - Venous No growth after 24 hours. 01/27/21 21:54 Blood Culture - Preliminary Blood - Venous No growth after 24 hours. Discharge Plan Discharge Patient Disposition: Home, Self-Care Referrals: Physician,Unknown [Primary Care Provider] - Discharge Medications: New furosemide 20 mg Tablet 20 mg PO DAILY Qty: 30 RF: 0 oxycodone [OxyContin] 10 mg Tablet,Oral Only,Ext.Rel.12 Hr 10 mg PO BID Qty: 60 RF: 0 oxycodone 5 mg Tablet 5 mg PO Q4H PRN (Reason: Pain) Qty: 20 RF: 0 Continued atorvastatin 20 mg tablet 1 tab PO DAILY RF: 0 amlodipine 10 mg tablet 1 tab PO DAILY RF: 0 metformin 1,000 mg tablet 1 tab PO BID RF: 0 Eliquis 5 mg tablet 1 tab PO BID RF: 0 oxycodone 5 mg tablet 1 tab PO Q4H PRN (Reason: Pain) Qty: 20 RF: 0 Discharge Orders: Discharge Order (Routine); Ordered 04/12/21 Ordered By: Maria Del Rosario Aleman Diet: advance to usual diet Activity on Discharge: As tolerated Stand Alone Forms: Patient Portal Discharge page Other Ambulatory Orders: Basic Metabolic Panel (Routine) Timeframe: 1 Week Facility: [facility] - Location: Laboratory Ordered By: Maria Del Rosario Aleman Care Plan Goals: Read below Health Concerns: Read below Plan of Treatment: You were admitted to the hospital with severe abdominal and back pain. CT scan of the abdomen and pelvis was consistent with progression of your underlying cancer. You were treated with IV and oral pain medications with fair response over the course of hospital stay. Addition of long-acting oxycodone twice daily seems to be helping on top of the as needed oxycodone. You were noticed to edema in your lower extremities an extra fluid in your abdomen and around your lungs. You were treated with water pills with good response. Assessment: Start OxyContin 10 mg twice daily Continue oxycodone 5 mg as needed Start furosemide 20 mg daily To repeat blood test next week
--- NOTE | 2021-01-29 11:42 | MHC.CM.PN ---
PT DISCHARGING TODAY HOME SELF-CARE, FAMILY TO TRANSPORT
== END 2021-01-29 13:15 | disposition home or self-care (01) ==
LOC: HO.ED 01-28 02:09 → HO.EDOVER 01-28 05:22 → HO.S3 01-28 05:27
PROVIDERS: Admitting Provider Internal Medicine; Emergency Provider Student in an Organized Health Care Education/Training Program; Visit Provider Student in an Organized Health Care Education/Training Program
DX: R10.11 Right upper quadrant pain (principal); D64.9 Anemia, unspecified; R18.8 Other ascites; C18.9 Malignant neoplasm of colon, unspecified; C78.7 Secondary malignant neoplasm of liver and intrahepatic bile duct; C78.00 Secondary malignant neoplasm of unspecified lung; J90 Pleural effusion, not elsewhere classified; M54.9 Dorsalgia, unspecified; E13.9 Other specified diabetes mellitus without complications; E78.5 Hyperlipidemia, unspecified; E78.00 Pure hypercholesterolemia, unspecified; Z20.822 Contact with and (suspected) exposure to COVID-19; Z79.891 Long term (current) use of opiate analgesic; Z92.21 Personal history of antineoplastic chemotherapy; Z79.84 Long term (current) use of oral hypoglycemic drugs; Z79.899 Other long term (current) drug therapy
CPT/HCPCS: 0241U; 36415; 71046; 74177; 80048; 80053; 81003; 82272; 82728; 83605; 83690; 85025; 85610; 85730; 87040; 96361; 96365; 96374; 96375; 96376; 99218; 99285; J0692; J1940; J2270; Q9967

== ENCOUNTER 2021-03-17 23:30 | Emergency (ER) | payer OTHER, SELFPAY ==
[2021-03-17 23:35] VITALS: BP 134/87; PULSE 87; RESP 18; TEMP 36.8; O2SAT 99; BMI 30.1
--- NOTE | 2021-03-18 00:29 | ED.ABDPAIN ---
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 This is a 55-year-old male with history of colon cancer with metastases, patient had a recent CT of the abdomen pelvis which showed more metastatic lesion, patient/family decided to start the patient on hospice/palliative treatment. Patient is taking oxycodone to control his chronic pain and he ran out of the oxycodone pill. Patient/family in the process for hospice service and at this point they will not take any testing in the emergency department. Related Data Home Medications Medication Instructions Recorded Confirmed Eliquis 1 tab PO BID 01/27/21 01/27/21 amlodipine 1 tab PO DAILY 01/27/21 01/27/21 atorvastatin 1 tab PO DAILY 01/27/21 01/27/21 metformin 1 tab PO BID 01/27/21 01/27/21 Previous Rx's Medication Instructions Recorded furosemide 20 mg PO DAILY #30 tab 01/29/21 oxycodone 1 tab PO Q4H PRN #20 tab 01/29/21 oxycodone 5 mg PO Q4H PRN #20 tab 01/29/21 oxycodone [OxyContin] 10 mg PO BID #60 tab 01/29/21 Allergies Allergy/AdvReac Type Severity Reaction Status Date / Time No Known Allergies Allergy Verified 01/27/21 20:26 [No Known Allergies*] Review of Systems Review of Systems All other systems are reviewed and are negative Constitutional: Reports as per HPI and Reports no additional constitutional complaints Eyes: Reports as per HPI and Reports no additional eye complaints Reports system reviewed and no additional complaints, except as documented Cardiovascular: Reports as per HPI and Reports no additional cardiovascular complaints Respiratory: Reports as per HPI and Reports no additional respiratory complaints Gastrointestinal: Reports as per HPI and Reports no additional gastrointestinal complaints Genitourinary: Reports no additional female genitourinary complaints Musculoskeletal: Reports no additional musculoskeletal complaints Skin/Breast: Reports system reviewed and no additional complaints, except as docu Psychiatric: Reports no additional psychiatric complaints Endocrine: Reports no additional endocrine complaints Hematologic/Lymphatic: Reports no additional hematologic/lymphatic complaints Allergic/Immunologic: Reports no additional allergic/immunologic complaints Reports system reviewed and no additional complaints, except as documented and Reports Abnormal speech present Physical Exam Vital Signs: Vital Signs: Last Vital Signs Temp 98.2 F 03/17/21 23:35 Pulse 87 03/17/21 23:35 Resp 18 03/17/21 23:35 BP 134/87 03/17/21 23:35 Pulse Ox 99 03/17/21 23:35 Body Mass Index 30.1 Vital signs have been reviewed as appeared to be correct. Blood pressure normal. Heart rate normal. Respiration rate normal. Temperature normal. Oxygen saturation normal. Appearance: Alert. Oriented X3. No acute distress. Cachectic, mild jaundice Head: Normal external exam. Normocephalic. Atraumatic. No Gayle signs noted. No raccoon eyes noted Eyes: PERRLA. EOMI. Conjunctiva and sclera normal. Eyelids normal. ENT: TM's Normal. Pharynx normal. Uvula midline. Moist mucous membranes. No trismus noted. No drooling noted. No muffled voice noted. Neck: Normal inspection. Neck supple. FROM. No adenopathy. Thyroid Normal. No meningeal signs. No neck mass noted. CVS: Normal heart rate and rhythm. Heart sound normal. No murmurs noted. Pulses normal throughout. Respiratory: No respiratory distress. Painless inspiration. Breath sounds normal. No wheezes/rales/rhonchi noted. Chest nontender. No accessory muscle usage noted or decreased air movement noted. Abdomen: Distended, mild ascites. Bowel sounds normal in all 4 quadrants. No distention noted. No organomegaly noted. No visible injury noted. Back: No CVA tenderness. Full range of motion noted. Skin: Skin warm and dry. Normal skin color. Normal skin turgor. No rashes/lesions/lacerations noted. Extremities: No lower extremity edema. Extremities exhibit normal range of motion. Extremities nontender. Neuro: Oriented X 3. No motor deficit. No sensory deficit. Reflexes normal. Course Course Course Narrative: Assessment and plan. 55-year-old male with chronic abdominal pain secondary to colon cancer and metastases, patient and family decided to go hospice/palliative treatment not approving any testing in the emergency department, here for only pain control. Patient was given Dilaudid p.o. to give the patient decent pain relief. Discharge the patient continue with hospice service. Discharge Plan Discharge Clinical Impression: Abdominal pain, Metastatic disease Patient Disposition: Home, Self-Care Instructions: Chronic Abdominal Pain (ED) Prescriptions: No Action atorvastatin 20 mg tablet 1 tab PO DAILY RF: 0 amlodipine 10 mg tablet 1 tab PO DAILY RF: 0 metformin 1,000 mg tablet 1 tab PO BID RF: 0 Eliquis 5 mg tablet 1 tab PO BID RF: 0 furosemide 20 mg Tablet 20 mg PO DAILY Qty: 30 RF: 0 oxycodone [OxyContin] 10 mg Tablet,Oral Only,Ext.Rel.12 Hr 10 mg PO BID Qty: 60 RF: 0 oxycodone 5 mg tablet 1 tab PO Q4H PRN (Reason: Pain) Qty: 20 RF: 0 oxycodone 5 mg Tablet 5 mg PO Q4H PRN (Reason: Pain) Qty: 20 RF: 0 Referrals: Adeline Newman, [facility] [Primary Care Provider] - 2 days PMF Past Medical History Medical History Anemia Ascites Colon cancer Colon cancer metastasized to liver Colon cancer metastasized to lung Diabetes 1.5, managed as type 2 High cholesterol Social History Social History Alcohol intake: unknown service: No Current occupational status: unemployed
[2021-03-18] MEDS: HYDROmorphone HCl 2 MG TABLET PO (00:33)
[2021-03-18 00:37] VITALS: BP 129/82; RESP 16
== END 2021-03-18 00:58 | disposition home or self-care (01) ==
LOC: HO.ED 03-18 00:44
PROVIDERS: Emergency Provider Emergency Medicine; PCP Nurse Practitioner Family
DX: R10.9 Unspecified abdominal pain (principal); C18.9 Malignant neoplasm of colon, unspecified; C78.7 Secondary malignant neoplasm of liver and intrahepatic bile duct; C78.00 Secondary malignant neoplasm of unspecified lung; E10.9 Type 1 diabetes mellitus without complications; E78.5 Hyperlipidemia, unspecified; D64.9 Anemia, unspecified; Z79.02 Long term (current) use of antithrombotics/antiplatelets; Z79.84 Long term (current) use of oral hypoglycemic drugs; Z79.899 Other long term (current) drug therapy; Z79.01 Long term (current) use of anticoagulants; Z79.891 Long term (current) use of opiate analgesic
CPT/HCPCS: 99283; 99284